=== PATIENT | female | born 1995 | race African-American/Black ===

== ENCOUNTER 2016-06-11 09:49 | Emergency (ER) | payer OTHER ==
[~2016-06-11 09:49] MED LIST: ADVAIR 100-501 EAC1; ADVAIR INH; ALBUTEROL17 GM; ALBUTEROL17 GM INH; ALBUTEROL17 GM NEB; BIRTH CONTROL; FLONASE16 GM; METRONIDAZOLE PO; MILLIPRED5 MG PO; NAPROSYN-EC500 M1 PO; NAPROXEN PO; NO MEDICATIONS; PREDNISONE50 MG PO; PROVENTIL0.83 MG/ML IH; SINGULAIR; SINGULAIR PO; ZITHROMAX PO
== END 2016-06-11 10:24 | disposition home or self-care (01) ==
LOC: SED 09:49
DX: J20.9 Acute bronchitis, unspecified (principal); J45.909 Unspecified asthma, uncomplicated; F17.200 Nicotine dependence, unspecified, uncomplicated
CPT/HCPCS: 87651; 99283

== ENCOUNTER 2016-08-24 17:36 | Emergency (ER) | payer OTHER | END 2016-08-24 18:48 | disposition home or self-care (01) | LOC: SED 17:36 | DX: R05 Cough (principal); J45.909 Unspecified asthma, uncomplicated; F17.210 Nicotine dependence, cigarettes, uncomplicated | CPT/HCPCS: 94640; 99283 ==